=== PATIENT | male | born 1965 | race Caucasian/White ===

== ENCOUNTER 2017-08-05 12:48 | Emergency (ER) | payer BC, OTHER ==
[2017-08-05 13:18] VITALS: BP 149/70
[2017-08-05] MEDS ORDERED: NS 0.9% 1000 ML* 1,000 ML BOLUS ONE (13:33)
[2017-08-05] MEDS ORDERED: Acetaminophen TAB* 325 MG PO ONE (13:34)
--- NOTE | 2017-08-05 13:40 | UC ---
HPI Febrile Illness - HPI Summary HPI Summary: 52 yo male with a three day hx of f/c (rigors) has felt faint brief episodes of cp and dyspnea Hx DM no n/v/d denies cough c/o right ankle pain and swellling onset of symptoms while in [place] - History of Current Complaint Chief Complaint: UCGeneralIllness Time Seen by Provider: 08/05/17 13:19 Hx Obtained From: Patient Timing: Constant Temperature: 101.6 F - onsure of Initial Severity: Moderate Current Severity: Moderate Pain Intensity: 4 Pain Scale Used: 0-10 Numeric Aggravating Factors: Nothing Alleviating Factors: OTC Medicine Associated Signs and Symptoms: Chills, Diaphoresis - Allergy/Home Medications Allergies/Adverse Reactions: Allergies Allergy/AdvReac Type Severity Reaction Status Date / Time No Known Allergies Allergy Verified 09/30/13 11:08 PMH/Surg Hx/FS Hx/Imm Hx Endocrine History: Diabetes - Surgical History Surgical History: Yes Surgery Procedure, Year, and Place: urogenital tubes placed - Family History Known Family History: Positive: Hypertension - Social History Alcohol Use: Occasionally Substance Use Type: None Smoking Status (MU): Former Smoker Review of Systems Constitutional: Fever, Chills, Fatigue Respiratory: Shortness Of Breath Cardiovascular: Chest Pain Musculoskeletal: Arthralgia, Myalgia Is Patient Immunocompromised?: Yes - DM All Other Systems Reviewed And Are Negative: Yes Physical Exam Triage Information Reviewed: Yes Appearance: Ill-Appearing Vital Signs: Initial Vital Signs Temp 101.6 F 08/05/17 13:14 Pulse 100 08/05/17 13:14 Resp 20 08/05/17 13:14 BP 149/70 08/05/17 13:14 Pulse Ox 100 08/05/17 13:14 Eyes: Positive: Conjunctiva Clear ENT: Positive: Hearing grossly normal. Negative: Nasal congestion, Nasal drainage, Trismus, Muffled/hoarse voice Neck: Positive: Supple, Nontender, No Lymphadenopathy Respiratory: Positive: Lungs clear, Normal breath sounds, No respiratory distress, No accessory muscle use Cardiovascular: Positive: RRR, No Murmur, Tachycardia Abdomen Description: Positive: Nontender, Soft, Bruit Musculoskeletal: Positive: Edema @ - right ankle/some tenderness right calf, Other: - antalgic gait Neurological: Positive: Alert Psychological Exam: Normal Skin Exam: Normal Diagnostics - EKG Cardiac Rate: NL Cardiac Rhythm: Sinus: Normal Ectopy: None ST Segment: Normal Course/Dx - Course Assessment/Plan: discussed with Dr. Navarro. to [facility] via EMS - Diagnoses Clinic Provider Diagnoses: fever of uncertain cause. atpical CP Discharge - Discharge Plan Condition: Stable Disposition: TRANS HIGHER LVL OF CARE FAC
== END 2017-08-05 14:05 | disposition short-term general hospital (02) ==
LOC: UCEAST 12:48
DX: R50.9 Fever, unspecified (principal); R07.89 Other chest pain; R06.00 Dyspnea, unspecified; M25.571 Pain in right ankle and joints of right foot; E11.9 Type 2 diabetes mellitus without complications; Z87.891 Personal history of nicotine dependence
CPT/HCPCS: 93005; 96360; 99213; A9270-GY; G0463

== ENCOUNTER 2017-12-16 12:15 | Emergency (ER) | payer BC ==
[2017-12-16] MEDS ORDERED: LORazepam INJ* 2 MG/ML 1 ML VIAL IV ONE (12:25)
[2017-12-16] MEDS ORDERED: Ondansetron INJ* 2 MG/ML VIAL IV ONE ×2 (13:13→14:18)
[2017-12-16] MEDS ORDERED: HYDROmorphone INJ* 1 MG/ML CARPUJECT SYRINGE IV ONE ×2 (13:13→14:18)
--- NOTE | 2017-12-16 14:52 | RAD ---
HISTORY: Low back pain, injury COMPARISONS: None relevant available at the time of dictation TECHNIQUE: Multiple contiguous axial CT scans were obtained of the lumbar spine without intravenous contrast, with coronal and sagittal multiplanar reformations. FINDINGS: SPINAL CANAL: Evaluation of the central canal is limited on CT technique; however, there is no obvious canalicular mass or epidural hemorrhage. ALIGNMENT: There is a mild levoscoliotic curvature of the spine. VERTEBRAL BODIES: The vertebral bodies are preserved in height. The bones are normal in attenuation. JOINTS: There is no subluxation or dislocation. MUSCULATURE: Unremarkable . INTERVERTEBRAL DISCS: There is mild diffuse loss of intervertebral disc height throughout the spine. AXIAL IMAGES: T12-L1: There is no osseous neural foraminal narrowing or central canal stenosis. L1-L2: There is no osseous neural foraminal narrowing or central canal stenosis. L2-L3: There is no osseous neural foraminal narrowing or central canal stenosis. L3-L4: There is no osseous neural foraminal narrowing or central canal stenosis. L4-L5: There is a broad-based disc bulge with a superimposed right lateral recess disc protrusion measuring 0.6 cm in depth. There is no osseous neural foraminal narrowing or central stenosis. L5-S1: There is mild broad-based disc bulge. There is marginal osteophyte formation at the neural foramina bilaterally. There is moderate left neural foraminal narrowing. There is no significant central canal stenosis. SOFT TISSUES: The visualized soft tissues of the abdomen are unremarkable. OTHER: None IMPRESSION: 1. MILD DEGENERATIVE DISC DISEASE. 2. THERE IS A RIGHT-SIDED DISC PROTRUSION AT L4-L5. 3. THERE IS LEFT-SIDED NEURAL FORAMINAL NARROWING AT L5-S1. THERE IS NO OSSEOUS CENTRAL CANAL STENOSIS..
[2017-12-16 16:53] VITALS: BP 134/70
--- NOTE | 2017-12-16 17:44 | ED ---
Ramsey Alfaro Jason, scribed for Braden Lujan MD on 12/16/17 at 1230 . Back Pain - HPI Summary HPI Summary: This patient is a 52 year old M BIBA to [facility] with a chief complaint of lumbar back pain since 1 hour ago. The patient states he was shoveling in a barn and, within the action of shoveling, he heard his back pop and subsequently dropped. Following this experience, he states he is unable to sit up or walk. The patient states he has never had problems with his back before. He has no known allergies and takes trulicity and insulin for diabetes. The patient rates the pain 10/10 in severity. Symptoms aggravated by movement. Symptoms alleviated by nothing. Patient reports leg weakness and lumbar pain. Patient denies urination at onset of pain. - History of Current Complaint Stated Complaint: BACK PAIN Time Seen by Provider: 12/16/17 12:19 Hx Obtained From: Patient Onset/Duration: Sudden Onset, Lasting Minutes - at 1120 today, Still Present Pain Intensity: 10 Pain Scale Used: 0-10 Numeric Aggravating Symptom(s): Movement Alleviating Symptom(s): Nothing Associated Signs And Symptoms: Positive: Negative - urniation, Weakness - legs - Allergies/Home Medications Allergies/Adverse Reactions: Allergies Allergy/AdvReac Type Severity Reaction Status Date / Time No Known Allergies Allergy Verified 10/30/17 11:04 PMH/Surg Hx/FS Hx/Imm Hx Previously Healthy: No Endocrine/Hematology History: Reports: Hx Diabetes Cardiovascular History: Denies: Hx Hypertension, Hx Pacemaker/ICD History: Denies: Hx Renal Disease Sensory History: Denies: Hx Contacts or Glasses, Hx Hearing Aid Opthamlomology History: Denies: Hx Contacts or Glasses Psychiatric History: Denies: Hx Panic Disorder - Surgical History Surgery Procedure, Year, and Place: KIDNEY STONES REMOVED STENT PLACED AND REMOVED. RIGHT ANKLE REPAIR NO HARDWARE. APPENDIX. RIGHT SHOULDER REPAIR NO HARDWARE Infectious Disease History: Denies: Hx Clostridium Difficile, Hx Hepatitis, Hx Human Immunodeficiency Virus (HIV), Hx of Known/Suspected MRSA, Hx Shingles, Hx Tuberculosis, Hx Known/ Suspected VRE, Hx Known/Suspected VRSA, History Other Infectious Disease - Family History Known Family History: Positive: Hypertension - Social History Alcohol Use: Occasionally Hx Substance Use: No Substance Use Type: Reports: None Hx Tobacco Use: Yes Smoking Status (MU): Former Smoker Review of Systems Positive: Other - lumbar back pain Positive: Weakness - bilateral leg All Other Systems Reviewed And Are Negative: Yes Physical Exam - Summary Physical Exam Summary: Appearance: The patient is well-nourished in no acute distress and in no acute pain. Skin: The skin is warm and dry and skin color reflects adequate perfusion. HEENT: ~The head is normocephalic and atraumatic. The pupils are equal and reactive. The conjunctivae are clear and without drainage. ~Nares are patent and without drainage. Mouth reveals moist mucous membranes and the throat is without erythema and exudate. The external ears are intact. The ear canals are patent and without drainage. The tympanic membranes are intact. Neck: the neck is supple with full range of motion and non-tender. There are no carotid bruits. ~There is no neck vein distension. Respiratory: Chest is non-tender. ~Lungs are clear to auscultation and breath sounds are symmetrical and equal. Cardiovascular: Heart is regular rate and rhythm. ~There is no murmur or rub auscultated. ~~There is no peripheral edema and pulses are symmetrical and equal. Abdomen: The abdomen is soft and non-tender. ~There are normal bowel sounds heard in all four quadrants and there is no organomegaly palpated. Musculoskeletal: ~Extremities are non-tender with full range of motion. ~There is good capillary refill. There is no peripheral edema or calf tenderness elicited. Positive straight leg raise at 30 degrees both sides. Tender bi- lumbar. Able to ambulate. Neurological: Patient is alert and oriented to person, place and time. ~The patient has symmetrical motor strength in all four extremities. ~Cranial nerves are grossly intact. Deep tendon reflexes are symmetrical and equal in all four extremities. Psychiatric: The patient has an appropriate affect and does not exhibit any anxiety or depression. Triage Information Reviewed: Yes Vital Signs On Initial Exam: Initial Vitals Temp Pulse Resp BP Pulse Ox 98.6 F 67 16 125/64 100 12/16/17 12:23 12/16/17 12:23 12/16/17 12:23 12/16/17 12:23 12/16/17 12:23 Vital Signs Reviewed: Yes Diagnostics - Vital Signs Vital Signs Temp Pulse Resp BP Pulse Ox 12/16/17 16:50 98.3 F 66 18 134/70 96 12/16/17 15:00 68 117/63 96 12/16/17 14:48 70 97 12/16/17 14:37 16 12/16/17 14:35 62 16 114/60 97 12/16/17 13:21 17 12/16/17 12:34 18 12/16/17 12:23 98.6 F 67 16 125/64 100 - Laboratory Lab Statement: Any lab studies that have been ordered have been reviewed, and results considered in the medical decision making process. - CT Lumbar Spine CT Interpretation Completed By: Radiologist - 1. MILD DEGENERATIVE DISC DISEASE. 2. THERE IS A RIGHT-SIDED DISC PROTRUSION AT L4-L5. 3. THERE IS LEFT- SIDED NEURAL FORAMINAL NARROWING AT L5-S1. THERE IS NO OSSEOUS CENTRAL CANAL STENOSIS. ED physician has reviewed this radiology report. Back Pain Course/Dx - Course Course Of Treatment: Mr. Odell presented in a very dramatic fashion. He could only lie on his left side and was crying out in pain from 'spasms'. He initialy denied having any back problems but later admitted that he has chronic problems and wears a lumbar belt but has never had anything as severe as today's pain. He could not cooperate for the exam, therefore I gave him ativan for the spasms and dialudid for the pain. After about an hour, I reexamined him and he was able to lie supine but I still could not get a good exam secondary to pain. I ordered a CT scan and additional dilaudid. The scan showed a disc protrusion at L4,5. When he returned, I was able to get a better exam and he clearly had sciatic signs but N/V/M wore completely intact. He was able to ambulate haltingly and I willl treat him symptomatically and recommend F/U. He may need an MR or PT after the initial injury has calmed down. - Diagnoses Provider Diagnoses: Low back strain, Sciatica Discharge - Discharge Plan Condition: Stable Disposition: HOME Prescriptions: oxyCODONE/Acetamin 5/325 MG* [Percocet 5/325 TAB*] 1 tab PO Q6H PRN #20 tab MDD 4 PRN Reason: Pain Patient Education Materials: Lumbar Disc Herniation (ED) Referrals: Vadim Wooten MD [Primary Care Provider] - Additional Instructions: RETURN TO THE EMERGENCY DEPARTMENT FOR CHANGING OR WORSENING SYMPTOMS. The documentation as recorded by the Ramsey noel Jason accurately reflects the service I personally performed and the decisions made by me, Braden Lujan MD.
== END 2017-12-16 16:50 | disposition home or self-care (01) ==
LOC: ED 12:15
DX: M54.5 Low back pain (principal); M54.30 Sciatica, unspecified side; R53.1 Weakness; Z87.891 Personal history of nicotine dependence
CPT/HCPCS: 72131; 99282; J1170; J2060; J2405